=== PATIENT | female | born 1945 | race Caucasian/White ===

== ENCOUNTER 2017-02-21 10:57 | Emergency (ER) | payer MEDICARE ==
[~2017-02-21 10:57] MED LIST: AGGRENOX1 CAP PO; ALBUTEROL17 GM INH; ANTIVERT PO; ASPIR-TRIN325 MG PO; ASPIRIN PO; ASPIRIN325 M1 PO; ASPIRIN81 M1 PO; ATORVASTATIN CA80 MG PO; CLONAZEPAM2 MG PO; CLOPIDOGREL75 MG PO; CYMBALTA PO; DULERA 100 MCG/13 GM IH; EFFEXOR XR PO; EFFEXOR XR75 MG PO; IMITREX50 MG PO; KLONOPIN PO; LEVOTHYROXINE75 MCG PO; LIPITOR PO; LIPITOR20 MG PO; LORATADINE PO; LORTAB 10/500 T1 TAB PO; LORTAB 7.5-5001 TAB PO; LORTAB 7.51 TAB 7.5/ PO; LYRICA100 MG PO; MULTI-VITAMIN1 TAB PO; NAPROXEN PO; NASONEX17 GM; NEURONTIN300 MG PO; PHENERGAN PO; PHENERGAN PR; PLAVIX PO; PROBENECID500 MG PO; SPIRIVA18 MCG INH; SYNTHROID PO; SYNTHROID0.05 MG PO; SYNTHROID75 MCG PO; TESSALON200 MG PO; TOPAMAX PO; TOPAMAX50 MG PO; ULORIC40 MG PO; ULORIC80 MG PO; VENLAFAXINE HC150 MG PO; VOLTAREN50 MG PO
[2017-02-21] MEDS ORDERED: LIPITOR (11:09)
== END 2017-02-21 12:07 | disposition home or self-care (01) ==
LOC: SED 10:57
DX: H16.001 Unspecified corneal ulcer, right eye (principal); F32.9 Major depressive disorder, single episode, unspecified; J44.9 Chronic obstructive pulmonary disease, unspecified; F41.9 Anxiety disorder, unspecified; E78.00 Pure hypercholesterolemia, unspecified; Z23 Encounter for immunization; Z79.82 Long term (current) use of aspirin; Z79.899 Other long term (current) drug therapy; Z88.2 Allergy status to sulfonamides; Z88.8 Allergy status to other drugs, medicaments and biological substances
CPT/HCPCS: 90471; 90715; 99283